=== PATIENT | female | born 1955 | race Caucasian/White ===

== ENCOUNTER → 2016-11-27 | Outpatient (CLI) | payer BC ==
[~2016-11-27] MED LIST: ALBU1AER9 INH; GLC/500 PO; NITR1CAP33 PO; OXYC-57 PO
--- NOTE | 2016-11-27 12:48 | DIAGNOSTIC IMAGING REPORT ---
KUB HISTORY: N20.0 [id number] COMPARISON: [facility] 08/30/2014. Abdomen and pelvis CT 01/30/2016. FINDINGS: The bowel gas pattern is unremarkable. There are no dilated loops of small bowel to suggest an obstruction. Round calcifications within the deep pelvis remain stable and likely represent phleboliths. No pneumoperitoneum or pneumatosis. No ureteral calculi identified. There is a 1.5 cm calcified exophytic nodule within the lower pole the right kidney. This is stable in size but demonstrates slight progression of the calcification. No definite renal calculi identified. IMPRESSION: 1. No renal or ureteral calculi identified. 2. A 1.5 cm partially calcified exophytic nodule within the lower pole of the right kidney. This is stable in size. Electronically signed by: Abdirahman Navarro M.D. 11/27/2016 12:47 PM Dictated Date/Time: 11/27/2016 12:44 PM
== END | disposition home or self-care (01) ==
LOC: C.RAD 11:59
PROVIDERS: ATTEND Urology
DX: N20.0 Calculus of kidney (principal)

== ENCOUNTER → 2016-11-28 | Outpatient (CLI) | payer BC | END | disposition home or self-care (01) | LOC: C.LABSPEC 17:00 | PROVIDERS: ATTEND Urology | DX: N39.0 Urinary tract infection, site not specified (principal) ==

== ENCOUNTER → 2017-12-01 | Outpatient (CLI) | payer OTHER ==
--- NOTE | 2017-12-01 18:29 | DIAGNOSTIC IMAGING REPORT ---
KUB HISTORY: Right-sided kidney stone follow-up D49.519 Renal neoplasm COMPARISON: [facility] 11/27/2016, CT 01/30/2016 FINDINGS: The bowel gas pattern is non-obstructive. Moderate volume of formed stool throughout the colon. There is no organomegaly. 1.5 x 0.6 cm calcification of the right kidney redemonstrated, correlating with calcified nodule seen on comparison CT study. No definite renal or ureteral calculi identified. Phleboliths of the pelvis redemonstrated. No pneumoperitoneum or pneumatosis. No fracture. IMPRESSION: 1. Unchanged 1.5 cm calcification of the inferior pole right kidney. 2. No definite renal or ureteral calculi identified. Electronically signed by: Lasha Blankenship M.D. 12/01/2017 6:27 PM Dictated Date/Time: 12/01/2017 6:25 PM
== END | disposition home or self-care (01) ==
LOC: C.RAD 18:11
PROVIDERS: ATTEND Urology
DX: D49.519 Neoplasm of unspecified behavior of unspecified kidney (principal); N20.0 Calculus of kidney